=== PATIENT | male | born 1975 | race Caucasian/White ===

== ENCOUNTER → 2017-06-11 | Outpatient (CLI) | payer OTHER | LOC: FIMAGING 17:05 | PROVIDERS: ATTEND Orthopaedic Surgery | DX: Z09 Encounter for follow-up examination after completed treatment for conditions other than malignant neoplasm (principal); Z98.890 Other specified postprocedural states ==

== ENCOUNTER → 2018-10-08 | Outpatient (CLI) | payer OTHER | LOC: BMCIMAGING 14:39 | PROVIDERS: ATTEND Internal Medicine | DX: J98.4 Other disorders of lung (principal); R05 Cough ==